=== PATIENT | female | born 1975 | race Caucasian/White ===

== ENCOUNTER 2017-08-24 08:24 | Emergency (ER) | payer OTHER ==
[~2017-08-24] VITALS: Ht 167.6 cm; Wt 75.7 kg
[2017-08-24 08:34] VITALS: BP_SYST 93
[2017-08-24 09:12] VITALS: BP_SYST 100
== END 2017-08-24 09:12 | disposition home or self-care (01) ==
LOC: SED 08:24
DX: L03.116 Cellulitis of left lower limb (principal); Z90.710 Acquired absence of both cervix and uterus
CPT/HCPCS: 99283